=== PATIENT | male | born 1975 | race Caucasian/White ===

== ENCOUNTER 2017-07-29 17:32 | Emergency (ER) | payer OTHER ==
[2017-07-29 18:10] LABS: HEMATOCRIT 41.8 % (39.0-50.0); HEMOGLOBIN 14.3 g/dl (14.0-18.0); IMMATURE GRANULOCYTES 0.3 % (0.0-1.0); MEAN CELL VOLUME 88.9 fL CALC (80.0-100.0); MEAN CORPUSCULAR HGB 30.4 pG CALC (26.0-32.0); MEAN CORPUSCULAR HGB CONC 34.2 g/L CALC (32.0-36.0); NEUT# 4.57 thou/uL (1.82-7.42); RED BLOOD COUNT 4.7 mill/uL (4.70-6.10); RED CELL DISTRI WIDTH 11.9 % (11.5-15.5)
[2017-07-29 18:20] LABS: ALBUMIN 4.4 g/dL (3.2-5.0); ALKALINE PHOSPHATASE 73 u/l (38-126); AMYLASE 63 u/l (30-110); ANION GAP 17 (6-22 (CALC)); BILIRUBIN, TOTAL 0.6 mg/dL (0.0-1.4); BUN 14 mg/dL (9-20); BUN/CREATININE RATIO 12 (12-20 (CALC)); CALCIUM 9.1 mg/dL (8.4-10.2); CARBON DIOXIDE 26 mmol/l (22-30); CHLORIDE 105 mmol/l (95-108); CREATININE 1.1 mg/dL (0.7-1.3); GFR > 60 ML/MIN (>=60 (CALC)); GFR FOR AFR.AMER. > 60 ML/MIN (>=60 (CALC)); GLUCOSE 108 mg/dL (75-110); LIPASE 183 u/l (23-300); POTASSIUM 3.8 mmol/l (3.5-5.1); SGOT/AST 24 u/l (17-59); SGPT/ALT 33 u/l (21-72); SODIUM 145 mmol/l (137-146); TOTAL PROTEIN 6.7 g/dL (6.3-8.2)
[2017-07-29 20:01] LABS: URINE BILIRUBIN - DIPSTICK NEGATIVE (NEGATIVE); URINE BLOOD DIPSTICK LARGE (NEGATIVE); URINE CLARITY CLEAR; URINE COLOR YELLOW; URINE GLUCOSE - DIPSTICK NEGATIVE (NEGATIVE); URINE KETONE NEGATIVE (NEGATIVE); URINE LEUK ESTERASE NEGATIVE (NEGATIVE); URINE NITRITE - DIPSTICK NEGATIVE (Negative); URINE PH 6.5 (4.5-8.0); URINE PROTEIN - DIPSTICK 30 mg/dL (NEG-TRACE); URINE SPECIFIC GRAVITY 1.025; URINE UROBILINOGEN - DIPSTICK 0.2 E.U./dL (0.2)
[2017-07-29] MEDS ORDERED: LORTAB 10-325 M1 TAB PO (20:36)
[2017-07-29] MEDS ORDERED: TAMSULOSIN0.4 MG PO (20:36)
[2017-07-29] MEDS ORDERED: TORADOL PO (20:36)
[2017-07-29 21:30] VITALS: BP 141/91
[2017-07-31] MEDS ORDERED: LIPITOR40 M1 PO (13:22)
[2017-07-31] MEDS ORDERED: OMEPRAZOLE20 M2 PO (13:22)
== END 2017-07-29 21:34 | disposition home or self-care (01) | DRG 392 ==
LOC: ED 17:32
PROVIDERS: Emergency Medicine
DX: R10.32 Left lower quadrant pain (principal); N13.2 Hydronephrosis with renal and ureteral calculous obstruction; R11.2 Nausea with vomiting, unspecified; Z87.442 Personal history of urinary calculi

== ENCOUNTER 2017-08-01 09:03 | Day surgery (SDC) | payer OTHER ==
[~2017-08-01] VITALS: Ht 172.7 cm; Wt 70.3 kg
[~2017-08-01 09:03] MED LIST: LIPITOR40 M1 PO; LORTAB 10-325 M1 TAB PO; OMEPRAZOLE20 M2 PO; TAMSULOSIN0.4 MG PO; TORADOL PO
[2017-08-01] MEDS ORDERED: PYRIDIUM200 MG PO (13:38)
[2017-08-01] MEDS ORDERED: BACTRIM DS1 TAB PO (13:38)
[2017-08-01] MEDS ORDERED: NORCO1 TA1 PO (13:39)
[2017-08-01 14:05] VITALS: BP 134/82
== END 2017-08-01 14:25 | disposition home or self-care (01) | DRG 669 ==
LOC: ORM 09:03
PROVIDERS: ATTEND Urology
PROC: 0TC78ZZ Extirpation of Matter from Left Ureter, Via Natural or Artificial Opening Endoscopic (ICD-10-PCS; principal; 2017-08-01)
PROC: 0T778DZ Dilation of Left Ureter with Intraluminal Device, Via Natural or Artificial Opening Endoscopic (ICD-10-PCS; 2017-08-01)
PROC: BT1FZZZ Fluoroscopy of Left Kidney, Ureter and Bladder (ICD-10-PCS; 2017-08-01)
DX: N13.2 Hydronephrosis with renal and ureteral calculous obstruction (principal); E78.5 Hyperlipidemia, unspecified; K21.9 Gastro-esophageal reflux disease without esophagitis; Z87.442 Personal history of urinary calculi

== ENCOUNTER 2017-08-23 05:55 | Day surgery (SDC) | payer OTHER ==
[~2017-08-23] VITALS: Ht 172.7 cm; Wt 70.3 kg
[~2017-08-23 05:55] MED LIST changes: +BACTRIM DS1 TAB PO; +NORCO1 TA1 PO; +PYRIDIUM200 MG PO
[2017-08-23 07:51] VITALS: BP 101/67
== END 2017-08-23 08:10 | disposition home or self-care (01) | DRG 700 ==
LOC: ORM 05:55
PROVIDERS: ATTEND Urology
PROC: 0TP98DZ Removal of Intraluminal Device from Ureter, Via Natural or Artificial Opening Endoscopic (ICD-10-PCS; principal; 2017-08-23)
DX: Z46.6 Encounter for fitting and adjustment of urinary device (principal); N20.0 Calculus of kidney; E78.5 Hyperlipidemia, unspecified; K21.9 Gastro-esophageal reflux disease without esophagitis

== ENCOUNTER 2022-11-15 00:39 | Observation (INO) | payer OTHER ==
[2022-11-15] VITALS (36 sets, daily range): BP systolic 107–139; BP diastolic 79–98
[~2022-11-15] VITALS: Ht 172.7 cm; Wt 75.0 kg
--- NOTE | 2022-11-15 00:39 | NUR ---
PT IN ROOM FOR TRIAGE. PT AMBULATED TO ROOM
--- NOTE | 2022-11-15 00:45 | NUR ---
STROKE ALERT CALLED ON PT HE REPORTED HEADACHE FOR 4 DAYS AND TINGLING IN THE BACK OF HIS HEAD RADIATES DOWN TO HIS LEFT ARM
[2022-11-15 01:12] LABS: BASO% 0.7 % (0-3); EOS% 1.2 % (0-8); HEMATOCRIT 42.8 % (39.0-50.0); HEMOGLOBIN 14.4 g/dl (14.0-18.0); IMMATURE GRANULOCYTES 0.4 % (0.0-5.0); LYMPH% 34.1 % (15-41); MEAN CELL VOLUME 86.6 fL CALC (80.0-100.0); MEAN CORPUSCULAR HGB 29.1 pG CALC (26.0-32.0); MEAN CORPUSCULAR HGB CONC 33.6 g/dL CAL (32.0-36.0); MONO% 9.6 % (2-13); NEUT# 3.65 thou/uL (1.82-7.42); RED BLOOD COUNT 4.94 mill/uL (4.70-6.10); RED CELL DISTRI WIDTH 12.3 % (11.5-15.5)
[2022-11-15 01:31] LABS: ALBUMIN 4.6 g/dL (3.2-5.0); ALKALINE PHOSPHATASE 87 u/l (38-126); ANION GAP 10 (6-22 (CALC)); BUN 19 mg/dL (9-20); BUN/CREATININE RATIO 16 (12-20 (CALC)); CARBON DIOXIDE 31 mmol/l (22-30); CHLORIDE 102 mmol/l (95-108); CREATININE 1.1 mg/dL (0.7-1.3); GFR FOR AFR.AMER. > 60 ML/MIN (>=60 (CALC)); GFR OTHER RACES > 60 ML/MIN (>=60 (CALC)); POTASSIUM 3.6 mmol/l (3.5-5.1); SGOT/AST 33 u/l (17-59); SODIUM 140 mmol/l (137-146); TOTAL PROTEIN 7.6 g/dL (6.3-8.2)
[2022-11-15 01:34] LABS: PROTHROMBIN TIME 10.1 SECONDS (9.0-12.5)
[2022-11-15 01:35] LABS: BILIRUBIN, TOTAL 0.3 mg/dL (0.0-1.4)
--- NOTE | 2022-11-15 01:50 | NUR ---
PT IN ROOM AOX3 NAD. IS IN ROOM AT BEDSIDE.
--- NOTE | 2022-11-15 02:43 | NUR ---
Reassessment of patient completed. No distress noted.
[2022-11-15 03:38] LABS: URINE BILIRUBIN - DIPSTICK NEGATIVE (NEGATIVE); URINE BLOOD DIPSTICK NEGATIVE (NEGATIVE); URINE COLOR YELLOW; URINE GLUCOSE - DIPSTICK NEGATIVE (NEGATIVE); URINE KETONE NEGATIVE (NEGATIVE); URINE LEUK ESTERASE NEGATIVE (NEGATIVE); URINE PH 7.5 (4.5-8.0); URINE PROTEIN - DIPSTICK NEGATIVE (NEG-TRACE); URINE UROBILINOGEN - DIPSTICK 0.2 E.U./dL (0.2)
--- NOTE | 2022-11-15 03:45 | NUR ---
Reassessment of patient completed. No distress noted. IS IN ROOM AT BEDSIDE WITH PT.
[2022-11-15 03:52] LABS: URINE NITRITE - DIPSTICK NEGATIVE (Negative)
--- NOTE | 2022-11-15 04:45 | NUR ---
PT IN ROOM RESTING WITH EYES CLOSED. HEPARIN DRIP STARTED ON PT.
--- NOTE | 2022-11-15 05:45 | NUR ---
Reassessment of patient completed. No distress noted.
--- NOTE | 2022-11-15 06:40 | NUR ---
Reassessment of patient completed. No distress noted.
--- NOTE | 2022-11-15 07:53 | NUR ---
report called to ICU, all questions anwsered at this time.
--- NOTE | 2022-11-15 08:04 | NUR ---
KCL DRIP INFUSING. RATE REDUCED TO 25 ML/HR DUE TO PAIN IN ARM W/INFUSION.
[2022-11-15 09:42] LABS: BASO% 0.9 % (0-3); EOS% 1.1 % (0-8); HEMATOCRIT 41.9 % (39.0-50.0); HEMOGLOBIN 13.9 g/dl (14.0-18.0); LYMPH% 31.1 % (15-41); MEAN CELL VOLUME 87.7 fL CALC (80.0-100.0); MEAN CORPUSCULAR HGB 29.1 pG CALC (26.0-32.0); MEAN CORPUSCULAR HGB CONC 33.2 g/dL CAL (32.0-36.0); MONO% 7.7 % (2-13); NEUT# 2.69 thou/uL (1.82-7.42); NEUT% 59.2 % (42-76); RED BLOOD COUNT 4.78 mill/uL (4.70-6.10); RED CELL DISTRI WIDTH 12.4 % (11.5-15.5)
[2022-11-15 10:03] LABS: ANION GAP 10 (6-22 (CALC)); BUN 16 mg/dL (9-20); BUN/CREATININE RATIO 15 (12-20 (CALC)); CARBON DIOXIDE 28 mmol/l (22-30); CHLORIDE 104 mmol/l (95-108); GFR FOR AFR.AMER. > 60 ML/MIN (>=60 (CALC)); GFR OTHER RACES > 60 ML/MIN (>=60 (CALC)); POTASSIUM 4.2 mmol/l (3.5-5.1); SODIUM 138 mmol/l (137-146)
[2022-11-15 10:13] LABS: ALBUMIN 4.6 g/dL (3.2-5.0); ALKALINE PHOSPHATASE 89 u/l (38-126); CALCULATED LDLCHOLESTEROL 156 mg/dL (62-129 (CALC)); HDL CHOLESTEROL 41 mg/dL (>=40); SGOT/AST 29 u/l (17-59); TOTAL CHOLESTEROL 238 mg/dl (0-199); TOTAL TRIGLYCERIDES 209 mg/dl (30-149); VLDL CHOLESTROL 42 mg/dl (5-56 (CALC))
[2022-11-15 10:15] LABS: BILIRUBIN, TOTAL 0.5 mg/dL (0.0-1.4)
[2022-11-15 10:22] LABS: C-REACTIVE PROTEIN < 0.5 mg/dL (0-0.9)
--- NOTE | 2022-11-15 10:38 | NUR ---
recd order to transfer pt to [facility]. pt aware and voices understanding. pt to 268 via wc. bedside report to be provided.
--- NOTE | 2022-11-15 11:00 | NUR ---
pt to room 268 via wc on tele in stable condition. iv site healthy. pt a&ox3 maew. bedside report provided.
--- NOTE | 2022-11-15 12:09 | NUR ---
PT RECIEVED FROM ICU. PT ASSESSED. VS STABLE. NO C/O CP OR SOB. NO S/S OF DISTRESS. BED IN LOW, LOCKED POSITION. BED ALARM ON. CALL SINGLETON WITHIN REACH. WILL CONTINUE TO MONITOR.
--- NOTE | 2022-11-15 20:00 | NUR ---
PATIENT RESTING IN BED, AT BEDSIDE. ALERT AND ORIENTED. ABLE TO MAKE NEEDS KNOWN. ASSESSMENT COMPLETE. NO DEFICITS NOTED. PATIENT ABLE TO AMBULATE. DENIES ANY PAIN. VOICED WANTING A DIFFERENT REFLUX MEDICATION AND SOMETHING FOR BEDTIME FOR SLEEP. INFORMED PATIENT I WOULD CONTACT [employer] ROOM WORKING SUPERVISOR PROVIDER. PATIENT AND ALSO MENTIONED NOT BEING VERY HAPPY WITH DAY SHIFT NURSE. WILL INFORM NURSING ARTIST'S REPRESENTATIVE. BED REMAINS IN LOW POSITION. CALL SINGLETON AND BELONGINGS IN REACH.
--- NOTE | 2022-11-15 21:03 | NUR ---
CALLED METER INSPECTOR PROVIDER FOR MEDICATION ORDERS FOR PATIENT FOR SLEEP AND REFLUX. SEE EMAR FOR NEW ORDERS.
--- NOTE | 2022-11-16 00:15 | NUR ---
PATIENT REMAINS RESTING IN BED. NO COMPLAINTS VOICED. AMBULATES BY HIMSELF WITHOUT DIFFICULTY. REMAINS WITHOUT DEFICITS. DENIES ANY PAIN. NO DISTRESS. BED REMAINS IN LOW POSITION. CALL SINGLETON IN REACH.
[2022-11-16 00:26] VITALS: BP 120/80
[2022-11-16 04:17] VITALS: BP 126/85
--- NOTE | 2022-11-16 04:30 | NUR ---
PATIENT RESTING IN BED. NO COMPLAINTS OF CHEST PAIN. NO DISTRESS NOTED. BED REMAINS IN LOW POSITION. CALL SINGLETON AND BELONGINGS REMAIN IN REACH.
[2022-11-16 06:36] VITALS: BP 104/72
[2022-11-16 06:44] LABS: ALBUMIN 4.5 g/dL (3.2-5.0); ALKALINE PHOSPHATASE 83 u/l (38-126); ANION GAP 13 (6-22 (CALC)); BILIRUBIN, TOTAL 0.6 mg/dL (0.0-1.4); BUN 14 mg/dL (9-20); BUN/CREATININE RATIO 12 (12-20 (CALC)); CARBON DIOXIDE 24 mmol/l (22-30); CHLORIDE 107 mmol/l (95-108); CREATININE 1.1 mg/dL (0.7-1.3); GFR FOR AFR.AMER. > 60 ML/MIN (>=60 (CALC)); GFR OTHER RACES > 60 ML/MIN (>=60 (CALC)); POTASSIUM 4.7 mmol/l (3.5-5.1); SGOT/AST 30 u/l (17-59); SODIUM 139 mmol/l (137-146); TOTAL PROTEIN 7.1 g/dL (6.3-8.2)
[2022-11-16 06:50] LABS: BASO% 0.6 % (0-3); HEMATOCRIT 44.9 % (39.0-50.0); HEMOGLOBIN 15.2 g/dl (14.0-18.0); IMMATURE GRANULOCYTES 0.1 % (0.0-5.0); LYMPH% 29.7 % (15-41); MEAN CELL VOLUME 87.7 fL CALC (80.0-100.0); MEAN CORPUSCULAR HGB 29.7 pG CALC (26.0-32.0); MEAN CORPUSCULAR HGB CONC 33.9 g/dL CAL (32.0-36.0); MONO% 8.6 % (2-13); NEUT# 4.03 thou/uL (1.82-7.42); RED BLOOD COUNT 5.12 mill/uL (4.70-6.10); RED CELL DISTRI WIDTH 12.4 % (11.5-15.5)
--- NOTE | 2022-11-16 08:00 | NUR ---
PT WITH FAMILY MEMBER AT BEDSIDE. ASSESSMENT COMPLETED. NIH COMPLETED. TELE MONITOR IN PLACE. CONTINOUS MONITORING PER ED. UPDATED PT ON CURRENT PLAN OF CARE. PT INDICTAED UNDERSTANDING. FALL/SAFTEY PRECAUTION IN PLACE. CALL LIGHT WITHIN REACH
[2022-11-16 08:14] VITALS: BP 104/72
[2022-11-16 09:14] LABS: BASO% 0.4 % (0-3); EOS% 1.2 % (0-8); HEMATOCRIT 45.3 % (39.0-50.0); HEMOGLOBIN 15.2 g/dl (14.0-18.0); LYMPH% 26.6 % (15-41); MEAN CELL VOLUME 86.6 fL CALC (80.0-100.0); MEAN CORPUSCULAR HGB 29.1 pG CALC (26.0-32.0); MEAN CORPUSCULAR HGB CONC 33.6 g/dL CAL (32.0-36.0); NEUT# 3.56 thou/uL (1.82-7.42); NEUT% 62.8 % (42-76); RED BLOOD COUNT 5.23 mill/uL (4.70-6.10); RED CELL DISTRI WIDTH 12.3 % (11.5-15.5)
[2022-11-16 09:44] LABS: ANION GAP 12 (6-22 (CALC)); BUN 14 mg/dL (9-20); BUN/CREATININE RATIO 12 (12-20 (CALC)); CARBON DIOXIDE 26 mmol/l (22-30); CHLORIDE 106 mmol/l (95-108); CREATININE 1.2 mg/dL (0.7-1.3); GFR FOR AFR.AMER. > 60 ML/MIN (>=60 (CALC)); GFR OTHER RACES > 60 ML/MIN (>=60 (CALC)); POTASSIUM 4.3 mmol/l (3.5-5.1); SODIUM 139 mmol/l (137-146)
--- NOTE | 2022-11-16 12:00 | NUR ---
PT RESTIGN IN BED. NIH COMPLETED. PER A&OX3. STATES NO NEEDS AT THIS TIME. FALL/SAFTEY PRECAUTION IN PLACE. CALL LIGHT WITHIN REACH
[2022-11-16 15:24] VITALS: BP 119/74
--- NOTE | 2022-11-16 16:00 | NUR ---
PT RESTING IN BED, STATES NO NEEDS AT THIS TIME. BREATHING EVEN AND UNLABORED. FALL/SAFTEY PRECAUTION IN PLACE. CALL LIGHT WITHIN REACH
--- NOTE | 2022-11-16 17:37 | NUR ---
DEBRA CONSULT VIA [facility]. AT BEDSIDE
--- NOTE | 2022-11-16 19:20 | NUR ---
Discharge instructions given. Patient verbalizes understanding of same. Discharged in stable condition via Wheelchair to Home with staff. All belongings sent with pt.
== END 2022-11-16 19:00 | disposition home or self-care (01) | DRG 93 ==
LOC: ED 00:39 → ED-I 03:00 → ED 03:35 → ICU 03:36 → MS2 11:20
PROVIDERS: Emergency Medicine; Nurse Practitioner Family; ADMIT Internal Medicine; ATTEND Internal Medicine
DX: R20.2 Paresthesia of skin (principal); R51.9 Headache, unspecified; R07.9 Chest pain, unspecified; G93.89 Other specified disorders of brain; I10 Essential (primary) hypertension; E78.5 Hyperlipidemia, unspecified; K21.9 Gastro-esophageal reflux disease without esophagitis; Z87.820 Personal history of traumatic brain injury
CPT/HCPCS: G0378; J1644; J1650; Q3014